=== PATIENT | male | born 1940 | race Asian ===

== ENCOUNTER 2017-10-03 06:05 | Day surgery (SDC) | payer MEDICARE, OTHER ==
[2017-10-03] VITALS (8 sets, daily range): BP systolic 135–156; BP diastolic 69–85; PULSE 69–88; RESP 18–22
[~2017-10-03 06:05] MED LIST: CARBACHOL 0.01% 1.5 ML OPH INJ ONE; CEFAZOLIN 1 GM INJ ONE; CYCLOPENTOLATE/PHENYLEPH 2 ML OPH LEFT EYE SCH; DEXAMETHASONE 4 MG/ML 1 ML INJ ONE; DICLOFENAC 0.1% 2.5 ML OPH LEFT EYE SCH; EPINEPHrine 1 MG INJ ONE; GENTAMICIN 80 MG INJ ONE; LIDOCAINE 4% (MPF) 5 ML INJ ONE; MOXIFLOXACIN 0.5% 3 ML OPH LEFT EYE SCH; SOD CHLORIDE 0.9% 1,000 ML IV SCH; TROPICAMIDE 1% 3 ML OPH LEFT EYE SCH
[2017-10-03] MEDS ORDERED: LIDOCAINE 4% (MPF) 5 ML INJ ONE (06:23)
[2017-10-03] MEDS ORDERED: CARBACHOL 0.01% 1.5 ML OPH INJ IO ONE (06:56)
[2017-10-03] MEDS ORDERED: DEXAMETHASONE 4 MG/ML 1 ML INJ INJ ONE (06:57)
[2017-10-03] MEDS ORDERED: CEFAZOLIN 1 GM INJ INJ ONE (06:57)
[2017-10-03] MEDS ORDERED: LOSA25TA5 PO (07:09)
[2017-10-03] MEDS ORDERED: TAMS0.4C2 PO (07:09)
[2017-10-03] MEDS ORDERED: AMLO2.5T78 PO (07:09)
[2017-10-03] MEDS ORDERED: APIX2.5T PO (07:09)
--- NOTE | 2017-10-03 07:20 | PREOPHP ---
DATE OF ADMISSION: 10/03/2017 HISTORY OF PRESENT ILLNESS: This 77-year-old patient is admitted for elective cataract surgery of t he left eye. The patient has had progressive deterioration of vision in both eyes without prior his tory of eye disease or injury. The patient does have a history of systemic hypertension, benign pro static hypertrophy. CURRENT MEDICATIONS INCLUDE: 1. Tamsulosin. 2. Amlodipine. 3. Losartan and Eliquis. The patient has stopped the tamsulosin and Eliquis 1 week prior to surger y. ALLERGIES: THERE ARE NO KNOWN ALLERGIES. PHYSICAL EXAMINATION: HEENT: Visual acuity with best correction is 20/70 in the right eye and 20/100 in the left eye. Sl it lamp examination reveals anterior cortical nuclear sclerotic and posterior subcapsular cataracts present in both eyes. Applanation tonometry is 19 mmHg. 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 Examination of the macular region appears with in normal limits. Optical coherence tomography notes a tense retinal nerve fiber layer of the optic disk in both eyes indicative of the patient not having glaucoma. DIAGNOSIS: Cataract, left eye. PLAN: Cataract extraction with lens implant, left eye. The risks and alternatives to the surgery h ave been discussed with the patient as well as the hope for improvement in visual acuity leading to a greater ability to perform activities of daily living. The patient understands this and agrees to proceed with surgery. Dictated By: ELISEO NUNN/RAVI Conf#: [id number] DID#: [id number]
[2017-10-03] MEDS ORDERED: PROPOFOL 20 ML ONE (07:38)
[2017-10-03] MEDS ORDERED: LIDOCAINE 2% (SDV) 5 ML INJ ONE (07:39)
--- NOTE | 2017-10-03 08:11 | SIPON ---
Date/Time of Note Date/Time of Note DATE: 10/03/17 TIME: 08:10 Operative Report Preoperative Diagnosis cataqract os Postoperative Diagnosis same Operation/Procedure Performed cataract surgery with lens implant os Surgeon see signature line specimen preparation assistant none Anesthesia: MAC Estimated blood loss: none Transfusion Required none Specimen none Grafts/Implants posterior chamber lens implant Complications none ELISEO WHITE MD Oct 03, 2017 08:11
--- NOTE | 2017-10-04 08:07 | OPR ---
DATE OF OPERATION: 10/03/2017 PREOPERATIVE DIAGNOSIS: Cataract, left eye. POSTOPERATIVE DIAGNOSIS: Cataract, left eye. OPERATION PERFORMED: Cataract extraction with lens implant, left eye. SURGEON: Eliseo Villeda MD. ANESTHESIOLOGIST: Dr. Rossi. PROCEDURE: The patient was brought to the operating room and placed on the table with an IV in plac e and the patient attached to an surveillance system monitor. Oxygen was given via face mask. After some intravenous sedation was administered, local anesthesia was given using Xylocaine 2% with epinephrine, mixed with Marcaine 0.5%. This was given in a lid block and retrobulbar injection. The patient was then prepped and draped in the usual sterile manner. A wire lid speculum was inserted between the lids of the left eye. A Superblade was used to enter th e anterior chamber at the corneoscleral limbus at the 10:30 o'clock position. A separate incision wa s made using a 3.0-mm keratome which entered the corneoscleral junction at the 12 o'clock position. Through this 3-mm opening, an irrigating cystotome was introduced into the anterior chamber. The calixto mber was filled with Viscoat and an anterior capsulotomy was performed. Balanced salt solution was t hen used for hydrodissection of the lens. A phacoemulsification handpiece was then brought into the field and introduced into the anterior chamber. The lens nucleus was emulsified using a deep groove and cracking the nucleus into quadrants. Following this, each quadrant was aspirated and emulsified at the pupillary margin. After this was completed, the irrigation/aspiration handpiece was brought to the field, introduced i nto the posterior chamber, and the lens cortical material was removed. When this was completed, jennifer tional Viscoat was injected into the anterior and posterior chambers. The 3-mm opening had its internal lips enlarged, and then the posterior chamber intraocular lens alberto suring 20.0 diopters ([employer] model LI61AO) was then injected into the posterior chamber using the lens injector system. After the leading haptic was introduced into the capsular b ag and the lens optic was present in the center of the eye, the injector was removed and the trailin g haptic was grasped with non-toothed forceps and introduced into the capsular fold superiorly. A Si nskey hook was then used to rotate the intraocular lens so that the lips were oriented in the horizo ntal meridian. One 10-0 nylon suture was placed across the wound. Prior to tying, the irrigation/aspiration handpiece was reintroduced into the anterior chamber to re move the Viscoat. Miochol was instilled to constrict the pupil, and then the 10-0 nylon suture was t ied. The ends were cut short and then the knot was buried. Then, 0.5 mL of dexamethasone and 0.5 mL of Ancef were injected into the sub-Tenon space in the infe rior fornix. Ciloxan drops were then placed on the surface of the eye. The speculum was removed and a patch was applied. The patient then left the operating room in satisfactory condition. Dictated By: ELISEO NUNN/RAVI Conf#: [id number] DID#: [id number]
== END 2017-10-03 09:15 | disposition home or self-care (01) ==
LOC: SDS 06:05
PROVIDERS: ATTEND Ophthalmology
DX: H25.12 Age-related nuclear cataract, left eye (principal); I48.91 Unspecified atrial fibrillation; N18.3 Chronic kidney disease, stage 3 (moderate); I12.9 Hypertensive chronic kidney disease with stage 1 through stage 4 chronic kidney disease, or unspecified chronic kidney disease
CPT/HCPCS: 66984; J0171; J0690; J1100; J1580; V2632

== ENCOUNTER 2018-09-24 07:31 | Day surgery (SDC) | END 2018-09-24 16:05 | disposition home or self-care (01) ==